=== PATIENT | male | born 1945 | race Caucasian/White ===

== ENCOUNTER → 2018-08-18 07:25 | Outpatient (CLI) | payer OTHER, SELFPAY ==
[2017-05-13 13:36] VITALS: BMI 24.8
--- NOTE | 2018-08-18 07:25 | COLBX_PTH ---
PATIENT: MELANIA ANDRES LOC: [facility] U#:[id number] AGE/SX: 79/M ROOM: RE08/18/[address]: Dr. Ezekiel Dawn MD : 1945 BED: DIS: SPEC #: [id number] RECD: 08/18/18 16:42 STATUS: FLORINA RUBÉN #: [id number] MICHAEL: 08/18/18 07:[address]: Ezekiel Dawn DEPT: SURGICAL PATHOLOGY RECD BY: Lexx Sanabria ENTERED: 08/21/18 08:33 SP TYPE: COLON BX OTHR DR: [facility] Tissues: COLON BIOPSY Procedures: Surgery Specimen Level IV HEADER OPERATION: Not noted PRE-OP DIAGNOSIS: Colon polyp Z12.11 TISSUE SUBMITTED: Colon polyp at 20 cm MICROSCOPIC DIAGNOSIS Colon polyp at 20 cm, biopsy: Hyperplastic polyp. SJ:amparo 08/22/18 MICROSCOPIC DESCRIPTION Slides are reviewed. GROSS DESCRIPTION Received in fixative is one container labeled with the patient's name and designated colon polyp at 20 cm. The specimen consists of one irregular fragment of light walter soft tissue that measures 0.3 x 0.3 x 0.1 cm. The specimen is totally submitted in one cassette. / SJ:amparo 08/21/18 TC:1 CPT: 81626
== END ==
PROVIDERS: Referring Provider Surgery; Visit Provider Surgery
DX: Z12.11 Encounter for screening for malignant neoplasm of colon (principal); K63.5 Polyp of colon
CPT/HCPCS: 88305

== ENCOUNTER 2022-12-30 11:44 | Emergency (ER) | payer OTHER, MEDICARE, SELFPAY ==
[2022-12-30 11:47] VITALS: BP 127/63; PULSE 118; RESP 22; TEMP 37.7; O2SAT 93; BMI 25.2
--- NOTE | 2022-12-30 11:59 | CT_ITS ---
STUDY: CT CERVICAL SPINE WITHOUT CONTRAST REASON FOR EXAM: Male, 77 years old. Facial injury due to a fall. Loss of consciousness. RADIATION DOSAGE (If Supplied By Facility): CTDIvol = ( 24.48 ) mGy, DLP = ( 570.04 ) mGycm TECHNIQUE: High resolution transaxial imaging was performed without contrast material. Sagittal and coronal images were reconstructed. Individualized dose optimization techniques were used for this CT. COMPARISON: None FINDINGS: Normal craniovertebral junction. There are degenerative changes of the anterior atlantoaxial articulation. Normal odontoid process. Normal cervical lordosis. Normal vertebral bodies and posterior osseous elements. C2-3: Facet joint osteoarthritis and hypertrophy worse on the left side. No significant foraminal stenosis is seen. C3-4: Facet joint osteoarthritis and hypertrophy. Uncovertebral arthrosis. Bilateral neural foraminal stenosis. C4-5: Marked degree of disc space narrowing. Uncovertebral arthrosis and spondylosis posteriorly worse on the right side. Marked degree of bilateral neural foraminal stenosis worse on the right side. Moderate central canal stenosis. C5-6: Marked degree of disc space narrowing. Spondylosis. Bilateral moderate to severe degree of neural foraminal stenosis worse on the left side. Central canal stenosis. C6-7: Facet joint osteoarthritis and hypertrophy. Mild degree of bilateral neural foraminal stenosis. C7-T1: Normal endplates. Normal disc height and morphology. Normal central canal and intervertebral neuroforamina. Normal visualized soft tissue structures. CT/Spine Cervical without Contras IMPRESSION: Multilevel degenerative changes, as described above. Neural foraminal and central canal stenosis at the C4-C5 and C5-C6 levels. Electronically Signed: Jaycob Juarez MD at 12:50 EDT ,
--- NOTE | 2022-12-30 11:59 | CT_ITS ---
STUDY: CT LUMBAR SPINE WITHOUT CONTRAST REASON FOR EXAM: Male, 77 years old. Pain, trauma RADIATION DOSAGE (If Supplied By Facility): CTDIvol = ( 39.41 ) mGy, DLP = ( 1529.59 ) mGycm TECHNIQUE: The patient was scanned in a multi detector CT scanner. High resolution transaxial imaging was performed. Images were obtained from L1 to S1 intervertebral level. Sagittal and coronal images were reconstructed. Individualized dose optimization techniques were used for this CT. COMPARISON: None FINDINGS: Normal lumbar lordosis. There is no substantial scoliosis. Increased markings at the lung bases suggestive of atelectasis. Normal vertebrae of the lumbar spine. L1-2: Mild degree of disc space narrowing. Anterior spondylosis. L2-3: Mild degree of disc space narrowing. Facet joint osteophytes right wrist and hypertrophy. Moderate degree of bilateral neural foraminal stenosis. L3-4: Facet joint osteoarthritis and hypertrophy. Bilateral neural foraminal stenosis. Mild degree of central canal stenosis. L4-5: Grade 1 anterolisthesis of L4 on L5 due to spondylolysis of the pars interarticularis of the L5 vertebrae. Facet joint osteoarthritis and hypertrophy. Bilateral neural foraminal and central canal stenosis. L5-S1: Moderate degree of disc space narrowing. Atherosclerotic calcification of the abdominal aorta. CT/Spine Lumbar without Contrast IMPRESSION: Multilevel degenerative changes, as described above. Electronically Signed: Jaycob Juarez MD at 12:52 EDT ,
--- NOTE | 2022-12-30 11:59 | CT_ITS ---
STUDY: CT BRAIN WITHOUT CONTRAST REASON FOR EXAM: Male, 77 years old. Facial injury due to a fall. Loss of consciousness. RADIATION DOSAGE (If Supplied By Facility): CTDIvol = ( 44.99 ) mGy, DLP = ( 880.47 ) mGycm TECHNIQUE: Transaxial CT imaging of the brain was performed without administration of intravenous contrast material. Individualized dose optimization techniques were used for this CT. COMPARISON: Comparison is made with prior study dated May 20, 2016. FINDINGS: Normal soft tissue structures. Normal calvarium. There is mild cerebral atrophy with widening of the extra-axial spaces and ventricular dilatation. There are areas of decreased attenuation within the white matter tracts of the supratentorial brain, consistent with microvascular disease changes. There are small punctate calcifications of the basal ganglia which are seen in the aging brain as a normal variant. Normal brainstem. Normal cerebellum. There is no intracranial hemorrhage. There are no findings of an acute ischemic infarction. Minimal degree of mucosal thickening of the left maxillary sinus. CT/Brain/Head without Contrast IMPRESSION: Chronic involutional changes of the brain. Electronically Signed: Jaycob Juarez MD at 12:47 EDT ,
--- NOTE | 2022-12-30 12:01 | EDS_ITS ---
HPI HPI - Fall History of Present Illness Chief Complaint: Fall Narrative Narrative: 77-year-old male past medical history of hypertension, takes baby aspirin, had a syncopal episode after he fell and hit his head. He states he was not feeling well last evening. He was shuffling his feet, and fell forward. He struck his left forehead, and must of passed out for few minutes afterwards. He does take a BB aspirin as a blood thinner. He states he awoke in pounded on the floor to get his 's attention. He was unable to get up off the floor so EMS was called. He complains of pain in his low back. He denies any neck pain or any headache. He is slightly nauseated but has not vomited. No other symptoms. No other injury except for low back pain. PFSH PFSH Home Medications Ibuprofen [Motrin] 800 mg PO BID 11/02/15 [History Last Taken 11/02/15] doxazosin 2 mg tablet (Cardura) 4 mg PO DAILY 11/02/15 [History Last Taken 11/01/15] lisinopril 10 mg tablet 40 mg PO BID 11/02/15 [History Last Taken 11/02/15] omeprazole 20 mg capsule,delayed release 20 mg PO DAILY 11/02/15 [History Last Taken 11/02/15] ropinirole 5 mg tablet (Requip) 1 mg PO TID 11/02/15 [History Last Taken 11/02/15] tramadol 50 mg tablet 50 mg PO BID 11/02/15 [History Last Taken 11/01/15] docusate sodium 100 mg capsule (DOK) 100 mg PO DAILY ##20 05/20/16 [Rx Last Taken Unknown] oxycodone-acetaminophen 5 mg-325 mg tablet 1 - 2 tab PO Q4H PRN PRN Pain #20 tabs 05/20/16 [Rx Last Taken Unknown] amitriptyline 10 mg tablet 10 mg PO QHS 05/13/17 [History Last Taken Unknown] aspirin 81 mg tablet,delayed release 81 mg PO DAILY@0800 05/13/17 [History Last Taken Unknown] atorvastatin 80 mg tablet 80 mg PO QHS 05/13/17 [History Last Taken Unknown] fluticasone propionate 50 mcg/actuation blister powder for inhalation (Flovent Diskus) 50 mcg IH 05/13/17 [History Last Taken Unknown] metoprolol tartrate 25 mg tablet 25 mg PO BID 05/13/17 [History Last Taken Unknown] pantoprazole 40 mg tablet,delayed release 40 mg PO BID 05/13/17 [History Last Taken Unknown] sildenafil 100 mg tablet (Viagra) 100 mg PO 05/13/17 [History Last Taken Unknown] ticagrelor 90 mg tablet (Brilinta) 90 mg PO BID 05/13/17 [History Last Taken Unknown] Allergy/AdvReac Type Severity Reaction Status Date / Time amoxicillin Allergy Hives Verified 11/02/15 16:42 Surgical History (Updated 12/30/22 @ 12:00 by Jada Martines) H/O heart artery stent Social History Smoking Status: Former smoker ROS ROS ED ROS Narrative Constitutional: No fever, no chills. Positive malaise HEENT: No sore throat. No neck pain. No loss of vision. No rhinorrhea. Cardiovascular: No chest pain. No palpitations. No pedal edema. Respiratory: No cough, no shortness of breath. Abdominal: No abdominal pain. Positive nausea. No vomiting. Genitourinary: No dysuria. No hematuria. Musculoskeletal: No myalgias. No arthralgias. Low back pain. Neurologic: No headaches. No dizziness. No lightheadedness. Skin: No rash. No change in color. Psychiatric: No depression. No anxiety. EXAM Physical Exam Narrative Exam Narrative: Afebrile. Vital signs noted. Nontoxic-appearing. GCS 15. ABCs intact. HEENT: Normocephalic. Atraumatic. PERRL, EOMI. Neck soft and supple. No point tenderness or step off. Cardiovascular: Positive tachycardia. No murmurs, rubs, or gallops appreciated. Respiratory: No tachypnea. Lungs clear to auscultation bilaterally. Gastrointestinal: Abdomen soft, nontender, with normoactive bowel sounds. No rebound or guarding. Neurological: Awake. Alert. Oriented to person, place, time, and current events. Nonfocal, nonlateralizing. Able to raise arms above head without difficulty. Skin: No rash. Normal color. No pallor. Musculoskeletal: No pedal edema. Full range of motion extremities. Pelvis stable. Able to flex and extend bilateral hips and knees. Const Vital Signs: 12/30/22 11:47 12/30/22 13:37 12/30/22 14:31 Temperature 99.9 F H Temperature Source Oral Pulse Rate 118 H 117 H Respiratory Rate 22 H 16 Respiratory Effort Normal Non-Labored Respiratory Depth Normal Respiratory Pattern Normal Blood Pressure 127/63 H 155/79 H Blood Pressure Mean 84 104 Pulse Ox 93 93 Oxygen Delivery Method Room Air Room Air MDM MDM MDM Narrative Medical decision making narrative: Patient reports syncopal episode after he struck his head. There were no prodromal symptoms. He states he was not feeling well, and he has slightly elevated temperature of 99.9 ?F here and is tachycardic. Regarding his fall, I do feel CT imaging is indicated of the brain, C-spine, and especially his low back as he is having pain. This is to help rule out any spinal fractures or intracranial hemorrhage as he does take baby aspirin. Regarding his tachycardia and elevated temperature, sepsis type work-up will be pursued including lactic acid, CBC, and CMP. He will be swabbed for COVID. I will check his urine to rule out infection and a chest x-ray obtained to rule out pneumonia, additionally I will obtain a pelvic x-ray because of his fall and trauma although there are no clinical signs of hip fracture. I reviewed the patient's laboratory work and he has slightly elevated white count of 13.0 which I think is nonspecific, hemoglobin normal at 13.5, platelet count normal at 163. In review of his electrolytes, he has a sodium of 137 and normal potassium 4.2, chloride slightly elevated at 111, glucose appropriately elevated at 127 with an anion gap normal at 5. Lactic acid is normal at 1.4, I do not feel that he is septic from any source, additionally I see no source of infection in review of his urinalysis and do not feel antibiotics are indicated. Chest x-ray interpreted by myself shows no evidence of pneumonia. Given his low back pain and inability to ambulate initially, I obtained x-rays of the pelvis which shows no evidence of acute fracture on my independent interpretation. I reviewed the radiology report which confirms this. Multiple CT imagings were obtained initially including CT of the brain to look for acute hemorrhage and there is no evidence of skull fracture or intracranial hemorrhage, CT of the C-spine report was reviewed and there are degenerative changes but no evidence of fracture. I also reviewed the CT report for the CT lumbar spine which also shows degenerative changes, but no acute fracture. Patient was given Tylenol for headache. He was removed from his c-collar clinically. His respiratory swabs are negative for COVID and influenza. I am unsure as to the source of his low-grade fever of 99.9 degrees. Additionally, he was tachycardic, and satting 93% on room air. He may have undiagnosed COPD as he was a smoker according to his family. Concern was for pulmonary embolism given his tachycardia, borderline hypoxia, and low-grade fever. CTA was obtained and images reviewed. I reviewed the radiology report which shows emphysematous changes but no evidence of an acute pulmonary embolism. He was able to sit up from the cot, and I feel he can be discharged safely home with follow-up to his primary care provider. He will continue [id number]-[id number] medications. He feels well and would like to be discharged. I feel he can be d ischarged safely home with follow-up. Return instructions were reviewed. Disposition is discharged home in stable condition. History & Record Review Discussion w/independent historian: Patient and Family Additional record(s) reviewed:: Prior ED visit and Prior labs Lab Data Attestation: I reviewed the patient's lab results. Labs: Laboratory Results - last 24 hr 12/30/22 12/30/22 12/30/22 12:00 12:00 12:00 WBC 13.0 H RBC 4.52 L Hgb 13.5 Hct 40.1 MCV 88.7 MCH 29.9 MCHC 33.7 RDW Std Deviation 43.3 RDW Coeff of Radha 13.3 Plt Count 163 MPV 9.4 Immature Gran % (Auto) 0.600 Neut % (Auto) 91.3 H Lymph % (Auto) 3.5 L [place] % (Auto) 4.0 Eos % (Auto) 0.3 Baso % (Auto) 0.3 Absolute Neuts (auto) 11.9 H Absolute Lymphs (auto) 0.46 L Nucleated RBC % 0 Differential Comment COMMENT Sodium 137 Potassium 4.2 Chloride 111 H Carbon Dioxide 21.0 Anion Gap 5 BUN 20 H Creatinine 1.09 Estim Creat Clear Calc 68.91 Est GFR (MDRD) Af Amer 85 Est GFR (MDRD) Non-Af 70 BUN/Creatinine Ratio 18.3 Glucose 127 H Lactic Acid 1.4 Calcium 8.8 Total Bilirubin 1.20 H AST 19 ALT 18 Alkaline Phosphatase 47 Troponin I High Sens Total Protein 6.8 Albumin 3.6 Globulin 3.2 Albumin/Globulin Ratio 1.1 Urine Color Urine Clarity Urine pH Ur Specific Ravia Urine Protein Urine Glucose (UA) Urine Ketones Urine Occult Blood Urine Nitrite Urine Bilirubin Urine Urobilinogen Ur Leukocyte Esterase Urine RBC Urine WBC Ur Squamous Epith Cells Urine Bacteria Urine Mucus 12/30/22 12/30/22 12:00 12:51 WBC RBC Hgb Hct MCV MCH MCHC RDW Std Deviation RDW Coeff of Radha Plt Count MPV Immature Gran % (Auto) Neut % (Auto) Lymph % (Auto) [place] % (Auto) Eos % (Auto) Baso % (Auto) Absolute Neuts (auto) Absolute Lymphs (auto) Nucleated RBC % Differential Comment Sodium Potassium Chloride Carbon Dioxide Anion Gap BUN Creatinine Estim Creat Clear Calc Est GFR (MDRD) Af Amer Est GFR (MDRD) Non-Af BUN/Creatinine Ratio Glucose Lactic Acid Calcium Total Bilirubin AST ALT Alkaline Phosphatase Troponin I High Sens 21 Total Protein Albumin Globulin Albumin/Globulin Ratio Urine Color Yellow Urine Clarity Clear Urine pH 8.0 Ur Specific Ravia 1.010 Urine Protein Negative Urine Glucose (UA) Normal Urine Ketones Negative Urine Occult Blood 25 H Urine Nitrite Negative Urine Bilirubin Negative Urine Urobilinogen Normal Ur Leukocyte Esterase Negative Urine RBC 0-5 SEEN Urine WBC 0 SEEN Ur Squamous Epith Cells 0 SEEN Urine Bacteria 0 SEEN Urine Mucus 0 SEEN Radiography Diagnostic Testing: Clinical Impression(s) from Imaging Studies Brain CT 12/30/22 11:59 IMPRESSION: Chronic involutional changes of the brain. Electronically Signed: Jaycob Juarez MD at 12:47 EDT , Cervical Spine CT 12/30/22 11:59 IMPRESSION: Multilevel degenerative changes, as described above. Neural foraminal and central canal stenosis at the C4-C5 and C5-C6 levels. Electronically Signed: Jaycob Juarez MD at 12:50 EDT , Lumbar Spine CT 12/30/22 11:59 IMPRESSION: Multilevel degenerative changes, as described above. Electronically Signed: Jaycob Juarez MD at 12:52 EDT , Chest X-Ray 12/30/22 12:20 IMPRESSION: Hyperinflation. Stable mild scarring at the lung bases. Multiple healed right rib fractures. Electronically Signed: Jaycob Juarez MD at 12:55 EDT , Pelvis X-Ray 12/30/22 12:20 IMPRESSION: Normal x-ray examination of the pelvis. Electronically Signed: Jaycob Juarez MD at 12:55 EDT , Chest CTA 12/30/22 13:47 IMPRESSION: Hyperinflation. Mild degree of scarring and emphysematous changes at the right lung base. Electronically Signed: Jaycob Juarez MD at 14:37 EDT , Discharge Plan Triage Chief Complaint: Fall ED Provider: Misha Bush Dx/Rx/DC Orders Clinical Impression: Fall, Closed head injury, Lumbar strain, Tachycardia Instructions: ED Back Sprain/Strain, ED Fall with Uncertain Cause, ED Head Injury (Adult) Prescriptions: No Action tramadol 50 MG tablet 50 mg PO BID Label Comments: ARTHRITIS lisinopril 10 MG tablet 40 mg PO BID Label Comments: BLOOD PRESSURE omeprazole 20 MG capsule 20 mg PO DAILY Label Comments: GERD ropinirole [Requip] 5 MG tablet 1 mg PO TID Label Comments: RESTLESS LEGS Ibuprofen [Motrin] 800 MG tablet 800 mg PO BID Label Comments: PAIN doxazosin [Cardura] 2 MG tablet 4 mg PO DAILY Label Comments: HEART,BLOOD PRESSURE oxycodone-acetaminophen 1 TABLET tablet 1 - 2 tab PO Q4H PRN PRN (Reason: Pain) Qty: 20 0RF docusate sodium [DOK] 100 MG capsule 100 mg PO DAILY Qty: 20 0RF Flovent Diskus 50 MCG blister with device 50 mcg IH atorvastatin 80 MG tablet 80 mg PO QHS aspirin 81 MG tablet 81 mg PO DAILY@0800 sildenafil [Viagra] 100 MG tablet 100 mg PO amitriptyline 10 MG tablet 10 mg PO QHS pantoprazole 40 MG tablet 40 mg PO BID metoprolol tartrate 25 MG tablet 25 mg PO BID ticagrelor [Brilinta] 90 MG tablet 90 mg PO BID [facility] [Primary [facility] Provider] - Disposition Disposition: Home, Self Care
[2022-12-30] MEDS: Ondansetron 4 MG/2 ML Vial IV (12:10)
[2022-12-30] MEDS: 0.9% Normal Saline 1,000 ML 1000 ML IV (12:10)
[2022-12-30 12:14] LABS: Absolute Lymphocyte Count 0.46 X10^3/uL (0.83-4.51); Absolute Neutrophil Count 11.9 X10^3/uL (2.0-7.7); Basophil# 0.04 X10^3/uL; Basophil% 0.3 % (0-1); Eosinophil# 0.04 X10^3/uL; Eosinophils% 0.3 % (0-5); Hematocrit 40.1 % (40-54); Hemoglobin 13.5 g/dL (13.0-16.5); Lymphocyte # 0.46 X10^3/ul (0.83-4.51); Lymphocyte % 3.5 % (19-41); Mean Corp Hgb Conc 33.7 g/dL (32-36); Mean Corpuscular Hgb 29.9 pg (27.0-32.0); Mean Corpuscular Volume 88.7 fL (80-94); Mean Platelet Vol. 9.4 fl (6.2-12.0); Monocyte# 0.52 X10^3/uL; NRBC Flagged by Analyzer 0 % (0-5); Neutrophil # 11.86 X10^3/uL (2.7-7.7); Neutrophil % 91.3 % (47-70); POSITIVE DIFFERENTIAL YES; Platelet Count 163 K/mm3 (150-450); RBC Distribution Width CV 13.3 % (11.6-14.6); RBC Distribution Width SD 43.3 fl (35.1-43.9); Red Blood Count 4.52 M/mm3 (4.6-6.2)
[2022-12-30 12:15] LABS: Differential Indicated SCAN CRITERIA MET
--- NOTE | 2022-12-30 12:20 | RAD_ITS ---
STUDY: X-RAY - PELVIS REASON FOR EXAM: Male, 77 years old. Pain following a fall. TECHNIQUE: One view of the pelvis was obtained. COMPARISON: None. FINDINGS: Moderate amount of fecal material is seen in the colon. Normal visualized soft tissue structures. Normal bilateral iliac wings, sacroiliac joints and visualized sacrum. Normal visualized bilateral superior and inferior pubic rami. Normal pubic symphysis. Normal ischial tuberosities. Normal visualized right femoral head. Normal right acetabulum. Normal right hip joint. Normal visualized left femoral head. Normal left acetabulum. Normal left hip joint. RAD/Pelvis 1 or 2 Views IMPRESSION: Normal x-ray examination of the pelvis. Electronically Signed: Jaycob Juarez MD at 12:55 EDT ,
--- NOTE | 2022-12-30 12:20 | RAD_ITS ---
STUDY: X-RAY CHEST REASON FOR EXAM: Male, 77 years old. Fever TECHNIQUE: Single AP portable view of the chest. COMPARISON: Comparison is made with prior examination dated April 28, 2015. FINDINGS: EKG electrodes are seen. Hyperinflation. Stable mild scarring at the lung bases. There is no demonstrated pleural abnormality. Normal size heart. Normal mediastinum and melissa. Normal visualized pulmonary arteries. There is atherosclerotic calcification of the aortic arch with tortuosity. There are degenerative changes of the visualized thoracic spine. There are multiple healed right-sided rib fractures. There is no demonstrated abnormality of the visualized soft tissue structures of the upper abdomen. RAD/Chest 1 View (Portable) IMPRESSION: Hyperinflation. Stable mild scarring at the lung bases. Multiple healed right rib fractures. Electronically Signed: Jaycob Juarez MD at 12:55 EDT ,
[2022-12-30 12:28] LABS: ALB/GLOB Ratio 1.1 RATIO (0.9-2.4); AST(SGOT) 19 U/L (15-37); Alanine Aminotransfer ALT/SGPT 18 U/L (16-61); Albumin, Serum 3.6 g/dL (3.2-5.0); Alkaline Phosphatase 47 U/L (45-117); Anion Gap 5 (5-15); BUN 20 mg/dL (7-18); BUN/Creat Ratio 18.3 RATIO (10-20); Calcium,Total 8.8 mg/dL (8.5-10.1); Chloride 111 mmol/L (98-107); Creatinine, Serum 1.09 mg/dL (0.70-1.30); EST Glomerular Filtration Rate 70 mL/min (>60); Est Glom Filt Rate - Afr Amer 85 mL/min (>60); Estimated Creatinine Clearance 68.91 ml/min; Globulin 3.2 g/dL (2.2-4.2); Glucose 127 mg/dL (74-106); Potassium 4.2 mmol/L (3.5-5.1); Protein, Total 6.8 g/dL (6.4-8.2); Sodium Level 137 mmol/L (136-145)
[2022-12-30 12:42] LABS: Lactic Acid 1.4 mmol/L (0.4-1.9)
[2022-12-30 12:57] LABS: Bacteria 0 SEEN /hpf (None Seen); Mucous, Urine 0 SEEN /hpf (<or=2+); Squamous Epithelial Cells - UA 0 SEEN /hpf (0-5); White Blood Cells 0 SEEN /hpf (0-5)
[2022-12-30 12:58] LABS: Color, Urine Yellow (Yellow); Glucose, Dipstick Normal (Normal); Ketone-Dipstick Negative (Negative); Leukocyte Esterase-Dipstick Negative /ul (Negative); Nitrite-Dipstick Negative (Negative); Occult Blood-Urine 25 /ul (Negative); Protein-Dipstick Negative (Negative); Urine Bilirubin Dipstick Negative (Negative); Urine Clarity Clear (Clear); Urine Urobilinogen Normal (Normal)
[2022-12-30 13:05] LABS: Red Blood Cells-Urine 0-5 SEEN /hpf (0-5)
[2022-12-30 13:37] VITALS: BP 155/79; PULSE 117; RESP 16; O2SAT 93
[2022-12-30] MEDS: Acetaminophen 500 MG Tablet 1000 MG PO (13:46)
--- NOTE | 2022-12-30 13:47 | CT_ITS ---
STUDY: CTA CHEST REASON FOR EXAM: Male, 77 years old. Shortness of breath RADIATION DOSAGE (If Supplied By Facility): CTDIvol = ( 13.66 ) mGy, DLP = ( 444.00 ) mGycm TECHNIQUE: The examination was performed with the intravenous administration of IV 100mL [id number]-[id number]. Post-processing of the angiographic images was performed, with multiplanar reformation and 3D reconstruction. Individualized dose optimization techniques were used for this CT. COMPARISON: Comparison is made with prior chest radiograph done earlier in the day. FINDINGS: Normal enhancement of the main pulmonary artery and right and left pulmonary arteries. Normal enhancement of the bilateral peripheral pulmonary arteries. There is no demonstrated pulmonary embolism. There is atherosclerotic calcification of the aortic arch with tortuosity. There is no demonstrated aortic dissection. There are calcifications of the coronary arteries. There are visualized mediastinal lymph nodes, which are within normal size limits, and with normal morphology. Normal hilar regions. Normal visualized trachea and bronchi. Hyperinflation. Mild degree of increased markings at the right lung base with small bullous formation suggestive of scarring. No focal infiltrate is seen. Normal pleura. Normal chest wall structures. There are degenerative changes of thoracic spine. Fatty infiltration of the liver. CT/CTA Chest W/WO Contrast IMPRESSION: Hyperinflation. Mild degree of scarring and emphysematous changes at the right lung base. Electronically Signed: Jaycob Juarez MD at 14:37 EDT ,
[2022-12-30 14:11] LABS: Troponin-I HS 21 pg/mL (3.0-78.0)
[2022-12-30 15:23] VITALS: BP 112/72; PULSE 120; O2SAT 93
== END 2022-12-30 15:30 | disposition home or self-care (01) ==
PROVIDERS: Emergency Provider Emergency Medicine; Referring Provider Emergency Medicine; Visit Provider Emergency Medicine
DX: S06.9X9A Unspecified intracranial injury with loss of consciousness of unspecified duration, initial encounter (principal); Z79.899 Other long term (current) drug therapy; I10 Essential (primary) hypertension; R00.0 Tachycardia, unspecified; S39.012A Strain of muscle, fascia and tendon of lower back, initial encounter; Z87.891 Personal history of nicotine dependence; Z79.82 Long term (current) use of aspirin; W01.198A Fall on same level from slipping, tripping and stumbling with subsequent striking against other object, initial encounter
CPT/HCPCS: 70450; 71045; 71275; 72125; 72131; 72170; 80053; 81001; 83605; 84484; 85025; 87428; 96361; 96374; 99285; J7030; Q9967; A4216; J2405

== ENCOUNTER 2023-04-01 12:31 | Emergency (ER) | payer OTHER, SELFPAY ==
[2023-04-01 12:32] VITALS: BP 135/50; PULSE 92; RESP 16; TEMP 35.7; O2SAT 96; BMI 22.3
--- NOTE | 2023-04-01 13:00 | CT_ITS ---
STUDY: CT CHEST WITHOUT CONTRAST REASON FOR EXAM: Male, 77 years old. Fall RADIATION DOSAGE (If Supplied By Facility): CTDIvol = ( 15.15 ) mGy, DLP = ( 533.70 ) mGycm TECHNIQUE: Transaxial imaging was performed without the administration of intravenous contrast material. Multiplanar coronal and sagittal images were reformatted. Individualized dose optimization techniques were used for this CT. COMPARISON: No relevant priors. FINDINGS: CHEST There is emphysema. There are mild interstitial septal increased opacities. There are granulomatous calcifications. There is no demonstrated pleural abnormality. There are calcifications and endovascular stents of the coronary arteries. There are paratracheal lymph nodes measuring up to 1.0 cm. Normal hilar regions. Normal unenhanced pulmonary arteries. There is atherosclerotic calcification of the aortic arch with tortuosity and elongation of the aortic arch and descending thoracic aorta. There are multi-level degenerative changes of the thoracic spine. There is no demonstrated abnormality of the visualized upper abdomen. CT/Chest without Contrast IMPRESSION: No fracture or pneumothorax. Mild interstitial fibrosis. Electronically Signed: Stefan Bills MD at 14:10 EDT ,
--- NOTE | 2023-04-01 13:00 | CT_ITS ---
STUDY: CT BRAIN WITHOUT CONTRAST REASON FOR EXAM: Male, 77 years old. Fall RADIATION DOSAGE (If Supplied By Facility): CTDIvol = ( 44.99 ) mGy, DLP = ( 863.60 ) mGycm TECHNIQUE: Transaxial CT imaging of the brain was performed without administration of intravenous contrast material. Individualized dose optimization techniques were used for this CT. COMPARISON: December 30, 2022 FINDINGS: Normal soft tissue structures. Normal calvarium. There is right orbital lens replacement. There is temporomandibular arthrosis. There is mild cerebral atrophy with widening of the extra-axial spaces and ventricular dilatation. There are areas of decreased attenuation within the white matter tracts of the supratentorial brain, consistent with microvascular disease changes. Normal basal ganglia and thalami. Normal brainstem. There is mild cerebellar atrophy. There is no intracranial hemorrhage. There are no findings of an acute ischemic infarction. There is mild mucosal thickening of the visualized paranasal sinuses. CT/Brain/Head without Contrast IMPRESSION: Chronic involutional changes of the brain. Electronically Signed: Stefan Bills MD at 13:50 EDT ,
--- NOTE | 2023-04-01 13:00 | CT_ITS ---
STUDY: CT CERVICAL SPINE WITHOUT CONTRAST REASON FOR EXAM: Male, 77 years old. Fall RADIATION DOSAGE (If Supplied By Facility): CTDIvol = ( 19.76 ) mGy, DLP = ( 430.60 ) mGycm TECHNIQUE: High resolution transaxial imaging was performed without contrast material. Sagittal and coronal images were reconstructed. Individualized dose optimization techniques were used for this CT. COMPARISON: None FINDINGS: Normal craniovertebral junction. There are degenerative changes of the anterior atlantoaxial articulation. Normal odontoid process. Normal cervical lordosis. Normal vertebral bodies and posterior osseous elements. There is no acute fracture. C2-3: There is mild spurring to the right. Normal central canal and intervertebral neuroforamina. C3-4: Mild spurring. Facet spurring. No canal stenosis. Mild foraminal narrowing. C4-5: Disc space narrowing. Spurring asymmetric to the right. Moderately severe canal stenosis. Right greater than left foraminal narrowing. C5-6: Disc space narrowing. Spurring. Facet spurring. Moderately severe canal stenosis. Bilateral foraminal narrowing. C6-7: Disc space narrowing. Spurring. Mild canal stenosis. Left foraminal narrowing. C7-T1: Normal endplates. Normal disc height and morphology. Facet spurring. Normal central canal and intervertebral neuroforamina. Normal visualized soft tissue structures. CT/Spine Cervical without Contras IMPRESSION: Multilevel degenerative changes, as described above. Electronically Signed: Stefan Bills MD at 13:58 EDT ,
--- NOTE | 2023-04-01 13:00 | CT_ITS ---
STUDY: CT LUMBAR SPINE WITHOUT CONTRAST REASON FOR EXAM: Male, 77 years old. Fall RADIATION DOSAGE (If Supplied By Facility): CTDIvol = ( 32.15 ) mGy, DLP = ( 1111.19 ) mGycm TECHNIQUE: The patient was scanned in a multi detector CT scanner. High resolution transaxial imaging was performed. Images were obtained from T12 to sacrum. Sagittal and coronal images were reconstructed. Individualized dose optimization techniques were used for this CT. COMPARISON: December 30, 2022 FINDINGS: Normal lumbar lordosis. There is grade 1 anterolisthesis at L4-5. There is a mild levoscoliosis of the lumbar spine. Normal vertebrae of the lumbar spine. There is no demonstrated compression deformity or fracture of the visualized lumbar vertebrae. L1-2: Mild spurring. No canal stenosis. Mild foraminal narrowing. L2-3: Mild spurring. Facet spurring. Mild canal stenosis. Right greater than left foraminal narrowing. L3-4: Disc bulge and spurring to the right. Facet spurring. Moderate canal stenosis. Right greater than left foraminal narrowing. L4-5: Disc bulge and mild spurring. Facet spurring. Severe canal stenosis. Bilateral foraminal narrowing L5-S1: Disc space narrowing. Spurring. Facet spurring. No canal stenosis. Bilateral foraminal narrowing. Normal visualized paraspinous soft tissue structures. CT/Spine Lumbar without Contrast IMPRESSION: Multilevel degenerative changes, as described above. Electronically Signed: Stefan Bills MD at 14:27 EDT ,
--- NOTE | 2023-04-01 13:24 | ED.RN ---
Dr. Gianni underwood'sangita pt. to take his home margarita
--- NOTE | 2023-04-01 15:07 | EDS_ITS ---
<Statement entered by Roselia Archer MD - 04/01/23 22:44> Patient seen and evaluated with FERNANDO. I personally interviewed and examined the patient. I was involved in all aspects of patient's orders, interpretation of results, and treatment. Patient presents after fall from truck bed. Patient fell out of the back of a truck bed a few days ago landing on his back. He denies loss of consciousness. He is not on anticoagulants. Patient sitting upright in bed no acute distress. Head and neck examination unremarkable. Heart is regular rate and rhythm. Lung sounds are clear. Abdomen is soft and nontender. Back examination reveals diffuse midline and paraspinal tenderness. CT scan of the head, C-spine, chest, lumbar spine obtained. No evidence of acute fractures noted. Patient declined anything here for pain and will continue [id number] medication at home. Return instructions given. HPI History of Present Illness Chief Complaint: Head Injury Narrative Narrative: Patient is a 77-year-old male with history of CAD, chronic right knee pain, hyperlipidemia, hypertension presents the emergency department after mechanical fall 2 days ago. Patient states he was on a truck, when he fell backwards on the bed of the truck falling 4 feet on his back and hitting his head. He denies any LOC however he does state he was dazed. He is not currently on any blood thinners. He states that his back, head, neck and lower back has been hurting, he is here for evaluation. PFSH PFSH Home Medications Ibuprofen [Motrin] 800 mg PO BID 11/02/15 [History Last Taken 11/02/15] doxazosin 2 mg tablet (Cardura) 4 mg PO DAILY 11/02/15 [History Last Taken 11/01/15] lisinopril 10 mg tablet 40 mg PO BID 11/02/15 [History Last Taken 11/02/15] omeprazole 20 mg capsule,delayed release 20 mg PO DAILY 11/02/15 [History Last Taken 11/02/15] ropinirole 5 mg tablet (Requip) 1 mg PO TID 11/02/15 [History Last Taken 11/02/15] tramadol 50 mg tablet 50 mg PO BID 11/02/15 [History Last Taken 11/01/15] docusate sodium 100 mg capsule (DOK) 100 mg PO DAILY ##20 05/20/16 [Rx Last Taken Unknown] oxycodone-acetaminophen 5 mg-325 mg tablet 1 - 2 tab PO Q4H PRN PRN Pain #20 tabs 05/20/16 [Rx Last Taken Unknown] amitriptyline 10 mg tablet 10 mg PO QHS 05/13/17 [History Last Taken Unknown] aspirin 81 mg tablet,delayed release 81 mg PO DAILY@0800 05/13/17 [History Last Taken Unknown] atorvastatin 80 mg tablet 80 mg PO QHS 05/13/17 [History Last Taken Unknown] fluticasone propionate 50 mcg/actuation blister powder for inhalation (Flovent Diskus) 50 mcg IH 05/13/17 [History Last Taken Unknown] metoprolol tartrate 25 mg tablet 25 mg PO BID 05/13/17 [History Last Taken Unkn own] pantoprazole 40 mg tablet,delayed release 40 mg PO BID 05/13/17 [History Last Taken Unknown] sildenafil 100 mg tablet (Viagra) 100 mg PO 05/13/17 [History Last Taken Unknown] ticagrelor 90 mg tablet (Brilinta) 90 mg PO BID 05/13/17 [History Last Taken Unknown] Allergy/AdvReac Type Severity Reaction Status Date / Time amoxicillin Allergy Hives Verified 11/02/15 16:42 Surgical History H/O heart artery stent Social History Smoking Status: Former smoker ROS ROS ED ROS Narrative Constitutional: Negative for fever, chills, weight loss, weakness Eyes: Negative for vision loss, vision change, double vision ENT: Negative for any sore throat, ear pain, congestion Cardiovascular: Negative for any chest pain, tightness, palpitations Respiratory: Negative for any cough, sputum production, hemoptysis, dyspnea, dyspnea on exertion, orthopnea Gastrointestinal: Negative for any abdominal pain, nausea, vomiting, diarrhea, constipation, blood in stool, blood in vomit : Negative for any urinary frequency, dysuria, retention, blood in urine Muscle skeletal: Negative for any muscle joint pain, stiffness, myalgias, art hralgias. Positive for back and neck pain Neurological: Negative for any syncope, numbness or tingling, dizziness. Positive for headache Skin: Negative for any rashes, lumps, itching, abrasions, lacerations Psychiatric: Negative for any depression, anxiety, stress, suicidal ideation, homicidal ideation Hematologic: Negative for any easy bruising, excessive bruising, easy bleeding Allergies: Negative for any eczema, hives, rash EXAM Physical Exam Narrative Exam Narrative: Vital signs reviewed. HEET: Head normocephalic atraumatic, TMs clear bilaterally. Posterior pharynx is clear, moist mucous membranes. Nares clear bilaterally. Pupils are equal round reactive to light. Negative for any hemotympanum, septal hematoma. Neck: Supple with no lymphadenopathy or tenderness. No signs of meningismus, negative jolt sign. Patient pain on palpation to the lumbar spine all the way down to the back pain. Cardiac: Regular rate and rhythm no murmurs gallops or rubs, equal peripheral pulses bilaterally. Respiratory: Lungs clear to auscultation bilaterally. No chest tenderness. Abdomen: Soft, nontender, nondistended. No abdominal bruit or pulsatile masses. No hepatosplenomegaly Extremities: No peripheral edema, no signs of gross trauma or deformity. Active full range of motion of all extremities. Neuro: Cranial nerves II through XII intact, no focal neurological deficits. Skin: Clean dry and intact with no rash, purpura, petechiae, vesicles or pustules. Backs/flank: No CVA tenderness, no midline spinal tenderness, no deformity. No step-off deformity. No ecchymosis, edema Psych: Normal mood and affect. No SI, HI or acute psychosis. Const Vital Signs: 04/01/23 12:32 04/01/23 13:24 Temperature 96.2 F L Temperature Source Temporal Pulse Rate 92 Respiratory Rate 16 Respiratory Effort Normal Blood Pressure 135/50 H Blood Pressure Mean 78 Pulse Ox 96 Oxygen Delivery Method Room Air Positive well nourished and well developed General Appearance ED: well developed MDM MDM Radiography Diagnostic Testing: Clinical Impression(s) from Imaging Studies Brain CT 04/01/23 13:00 IMPRESSION: Chronic involutional changes of the brain. Electronically Signed: Stefan Bills MD at 13:50 EDT , Cervical Spine CT 04/01/23 13:00 IMPRESSION: Multilevel degenerative changes, as described above. Electronically Signed: Stefan Bills MD at 13:58 EDT , Chest CT 04/01/23 13:00 IMPRESSION: No fracture or pneumothorax. Mild interstitial fibrosis. Electronically Signed: Stefan Bills MD at 14:10 EDT , Lumbar Spine CT 04/01/23 13:00 IMPRESSION: Multilevel degenerative changes, as described above. Electronically Signed: Stefan Bills MD at 14:27 EDT , Treatment and Re-Evaluation :: All radiologic examinations were read, reviewed by the emergency department attending. From these reads, a plan of care will be put in place. Patient appears generally well, patient appears nontoxic, vital signs are stable. Patient presents to the emergency department for mechanical fall outside of the truck bed. Patient received CT scans of the brain and cervical spine he did receive a CT scan of the chest which also showed the thoracic spine as well as the lumbar spine. All these CTs were concerning for any sort of intracranial bleeding, spinal fracture. All of these were negative. Patient is likely suffering from soft tissue injuries. He will ice, elevate, perform gentle stretching. Take Tylenol as well as his tramadol at home. All questions were answered, is given strict return precautions Discharge Plan Triage Chief Complaint: Head Injury ED Midlevel Provider: Refugio Booth ED Provider: Roselia Archer Dx/Rx/DC Orders Clinical Impression: Lumbar contusion, CHI (closed head injury), Cervical muscle strain, Fall Prescriptions: No Action tramadol 50 MG tablet 50 mg PO BID Patient Comments: ARTHRITIS lisinopril 10 MG tablet 40 mg PO BID Patient Comments: BLOOD PRESSURE omeprazole 20 MG capsule 20 mg PO DAILY Patient Comments: GERD ropinirole [Requip] 5 MG tablet 1 mg PO TID Patient Comments: RESTLESS LEGS Ibuprofen [Motrin] 800 MG tablet 800 mg PO BID Patient Comments: PAIN doxazosin [Cardura] 2 MG tablet 4 mg PO DAILY Patient Comments: HEART,BLOOD PRESSURE oxycodone-acetaminophen 1 TABLET tablet 1 - 2 tab PO Q4H PRN PRN (Reason: Pain) Qty: 20 0RF docusate sodium [DOK] 100 MG capsule 100 mg PO DAILY Qty: 20 0RF Flovent Diskus 50 MCG blister with device 50 mcg IH atorvastatin 80 MG tablet 80 mg PO QHS aspirin 81 MG tablet 81 mg PO DAILY@0800 sildenafil [Viagra] 100 MG tablet 100 mg PO amitriptyline 10 MG tablet 10 mg PO QHS pantoprazole 40 MG tablet 40 mg PO BID metoprolol tartrate 25 MG tablet 25 mg PO BID ticagrelor [Brilinta] 90 MG tablet 90 mg PO BID [facility] [[facility] - Disposition Disposition: Home, Self Care
[2023-04-01 15:22] VITALS: BP 133/42; PULSE 90; RESP 14; O2SAT 99
[2023-04-01 15:47] VITALS: RESP 16
== END 2023-04-01 15:48 | disposition home or self-care (01) ==
PROVIDERS: Emergency Provider Emergency Medicine; Visit Provider Emergency Medicine
DX: S09.8XXA Other specified injuries of head, initial encounter (principal); E78.5 Hyperlipidemia, unspecified; S16.1XXA Strain of muscle, fascia and tendon at neck level, initial encounter; Z87.891 Personal history of nicotine dependence; S30.0XXA Contusion of lower back and pelvis, initial encounter; I25.10 Atherosclerotic heart disease of native coronary artery without angina pectoris; I10 Essential (primary) hypertension; Z79.899 Other long term (current) drug therapy; Z79.82 Long term (current) use of aspirin; W17.89XA Other fall from one level to another, initial encounter; Y92.812 Truck as the place of occurrence of the external cause
CPT/HCPCS: 70450; 71250; 72125; 72131; 99282

== ENCOUNTER → 2024-02-10 | Outpatient (CLI) | payer OTHER, SELFPAY ==
--- NOTE | 2024-02-10 14:14 | US_ITS ---
EXAM: US SOFT TISSUES HEAD AND NECK, THYROID CLINICAL INDICATION: THYROID NODULES TECHNIQUE: De La Garza scale and color doppler imaging was performed of the thyroid gland. COMPARISON: CT cervical spine and CT chest 04/01/2023 FINDINGS: LEFT THYROID LOBE: Left thyroid lobe measures 3.2 x 1.3 x 1.8 cm. Homogeneous echotexture with normal vascularity. No thyroid nodules are present. RIGHT THYROID LOBE: Right thyroid lobe measures 4.3 x 1.0 x 2.1 cm. Homogeneous echotexture with normal vascularity. No thyroid nodules are present. ISTHMUS: Isthmus measures 2 mm in AP dimension. No thyroid nodules are present. US/Thyroid IMPRESSION: Normal thyroid ultrasound. Electronically Signed: Dion Anderson MD at 14:32 EDT ,
== END | disposition home or self-care (01) ==
LOC: US 14:10
PROVIDERS: Referring Provider Internal Medicine; Visit Provider Internal Medicine
DX: E04.1 Nontoxic single thyroid nodule (principal)
CPT/HCPCS: 76536

== ENCOUNTER → 2024-02-23 | Outpatient (CLI) | payer OTHER, SELFPAY ==
--- NOTE | 2024-02-23 13:05 | CT_ITS ---
HISTORY: LUNG NODULES. TECHNIQUE: Helically acquired images were obtained of the chest without contrast. A radiation dose optimization technique was used for this scan. 556 images. COMPARISON: 04/01/2023, 12/30/2022. FINDINGS: LARGE AIRWAYS: Patent. LUNGS: Mild emphysema with chronic reticular and linear scarring. Decreased lower lobe atelectasis. No new suspicious nodule or acute alveolar consolidation. Chronic calcifications in the right lower lobe. PLEURA: No pneumothorax or significant pleural effusion. HEART/PERICARDIUM: Heart within normal limits in size with coronary artery calcification. Chronic mild pericardial effusion. VESSELS: Thoracic aorta nondilated. MEDIASTINUM/BRIDGER: No pathologically enlarged adenopathy. UPPER ABDOMEN: Unremarkable. BONES: Old right 4th, 5th, and 6th rib fractures. CT/Chest without Contrast IMPRESSION: Mild emphysema with chronic scarring. Presence of pulmonary emphysema on CT is an independent risk factor for lung cancer. Consider LDCT lung cancer screening in the future. Chronic mild pericardial effusion. Electronically Signed: Mary Del Valle MD at 11:49 EDT ,
== END | disposition home or self-care (01) ==
PROVIDERS: Referring Provider Internal Medicine; Visit Provider Internal Medicine
DX: R91.1 Solitary pulmonary nodule (principal)
CPT/HCPCS: 71250

== ENCOUNTER 2025-01-12 12:47 | Emergency (ER) | payer OTHER, SELFPAY ==
[2025-01-12 12:48] VITALS: BP 153/68; PULSE 95; RESP 18; TEMP 37.2; O2SAT 100; BMI 23.1
--- NOTE | 2025-01-12 13:01 | EX.ED.UPPERE ---
HPI History of Present Illness HPI Narrative: Patient presents with a left hand and wrist pain that has been getting worse over the last 4 days. Patient states that his pain is worse when he wakes up in the morning. Patient states his fist is tight and clenched when he wakes up in the morning. Patient states this gets better as the day progresses. Patient denies any trauma or injury. Patient denies any paresthesias or weakness. Patient denies any coldness or cyanosis to his hand or fingers. Chief Complaint: Upper Extremity Injury Informant: patient Onset/Context/Timing Onset: Days (4) Context: Gradual Onset Timing: Intermittent Quality of Pain: Dull Location: Left hand and wrist Worsened by: Sleeping Relieved by: Nothing Associated Symptoms Associated Symptoms: Negative for Parasthesia, Weakness or Loss of Funtion [facility] Medical History (Updated 01/12/25 @ 14:[address] Donald Milian, DO) Hypertension Coronary artery disease Home Medications ?Medication ?Instructions ?Recorded ?Last Taken ?Type Ibuprofen [Motrin] 800 mg PO BID 11/02/15 11/02/15 History doxazosin 2 mg tablet (Cardura) 4 mg PO DAILY 11/02/15 11/01/15 History lisinopril 10 mg tablet 40 mg PO BID 11/02/15 11/02/15 History omeprazole 20 mg capsule,delayed 20 mg PO DAILY 11/02/15 11/02/15 History release ropinirole 5 mg tablet (Requip) 1 mg PO TID 11/02/15 11/02/15 History tramadol 50 mg tablet 50 mg PO BID 11/02/15 11/01/15 History docusate sodium 100 mg capsule 100 mg PO DAILY ##20 05/20/16 Unknown Rx (DOK) oxycodone-acetaminophen 5 mg-325 1 - 2 tab PO Q4H PRN PRN Pain #20 05/20/16 Unknown Rx mg tablet tabs amitriptyline 10 mg tablet 10 mg PO QHS 05/13/17 Unknown History aspirin 81 mg tablet,delayed 81 mg PO DAILY@0800 05/13/17 Unknown History release atorvastatin 80 mg tablet 80 mg PO QHS 05/13/17 Unknown History fluticasone propionate 50 50 mcg IH 05/13/17 Unknown History mcg/actuation blister powder for inhalation (Flovent Diskus) metoprolol tartrate 25 mg tablet 25 mg PO BID 05/13/17 Unknown History pantoprazole 40 mg tablet,delayed 40 mg PO BID 05/13/17 Unknown History release sildenafil 100 mg tablet (Viagra) 100 mg PO 05/13/17 Unknown History ticagrelor 90 mg tablet (Brilinta) 90 mg PO BID 05/13/17 Unknown History Allergy/AdvReac Type Severity Reaction Status Date / Time amoxicillin Allergy Hives Verified 01/12/25 12:48 Surgical History H/O heart artery stent Social History Smoking Status: Former smoker ROS ROS ED Constitutional Constitutional ED: Denies chills or fever(s) Eyes Eyes: Denies blurry vision or change in vision ENT ENT ED: Denies rhinorrhea or sore throat Cardiovascular Cardiovascular: Denies chest pain or palpitations Respiratory/Chest Respiratory/Chest: Denies cough or dyspnea Gastrointestinal Gastrointestinal: Denies nausea or vomiting Genitourinary Genitourinary ED: Denies dysuria or hematuria Musculoskeletal Musculoskeletal: Reports back pain; Denies neck pain Integumentary Denies abscess or rash Neurologic Neurologic: Denies headache(s) or weakness Allergic/Immunologic Allergic/Immunologic ED: Denies mouth swelling or urticaria EXAM Physical Exam Const Vital Signs: 01/12/25 12:48 Temperature 98.9 F Temperature Source Oral Pulse Rate 95 Respiratory Rate 18 Blood Pressure 153/68 H Blood Pressure Mean 96 Pulse Ox 100 Oxygen Delivery Method Room Air Positive well nourished and well developed General Appearance ED: well developed and NAD HEENT Reports moist mucous membranes Neck full ROM and supple Extremity Extremity Narrative: There is mild tenderness over the volar aspect of the left wrist and proximal hand. There is no edema or ecchymosis. There is no bony crepitance or step-off. There is no deformity noted. There is good range of motion of the left hand and left wrist. There is pain with flexion of the wrist with a closed fist. There is no pain with flexion of the wrist with open fingers. Radial pulses are equal bilaterally. Capillary refill was less than 2 seconds in all digits. There is no cyanosis or pallor. Tinel's sign was negative at the wrist and elbow. Phalen's test did not reproduce any paresthesias. Neuro oriented x3, CN's II-XII intact bilaterally, moves all extremities, no focal motor deficits and no sensory deficits noted Sensorium / Orientation: alert Motor Exam: strength 5/5 throughout Psych mental status grossly normal MDM MDM MDM Narrative Medical decision making narrative: Differential diagnosis includes electrolyte abnormality, carpal tunnel syndrome, and degenerative arthritis. CBC will be obtained to assess for leukocytosis and anemia. Basic metabolic profile will be obtained to assess for electrolyte abnormality and renal function. I do not feel x-rays are necessary at this time since the patient did not fall or have any direct trauma. Lab Data Attestation: I reviewed the patient's lab results. Lab results narrative: CBC was reviewed. There is a mild anemia with a hemoglobin of 12.7 and hematocrit 36.9. The remainder is within normal limits. Basic metabolic profile was reviewed and was essentially within normal limits. Treatment and Re-Evaluation Narrative: Patient was advised of his findings. Patient was advised that this could be carpal tunnel. Patient was given a cock up wrist splint. Patient was instructed to follow-up with his primary care physician in 3 to 5 days for further evaluation. Patient was instructed to return if worse in any way. Patient understood and was agreeable with the plan. All questions were answered. Discharge Plan Triage Chief Complaint: Upper Extremity Injury ED Provider: Donald Milian Dx/Rx/DC Orders Clinical Impression: Left hand pain, Hypertension Instructions: ED Pain, Acute, Uncertain Cause Prescriptions: No Action tramadol 50 MG tablet 50 mg PO BID Patient Comments: ARTHRITIS lisinopril 10 MG tablet 40 mg PO BID Patient Comments: BLOOD PRESSURE omeprazole 20 MG capsule 20 mg PO DAILY Patient Comments: GERD ropinirole [Requip] 5 MG tablet 1 mg PO TID Patient Comments: RESTLESS LEGS Ibuprofen [Motrin] 800 MG tablet 800 mg PO BID Patient Comments: PAIN doxazosin [Cardura] 2 MG tablet 4 mg PO DAILY Patient Comments: HEART,BLOOD PRESSURE oxycodone-acetaminophen 1 TABLET tablet 1 - 2 tab PO Q4H PRN PRN (Reason: Pain) Qty: 20 0RF docusate sodium [DOK] 100 MG capsule 100 mg PO DAILY Qty: 20 0RF Flovent Diskus 50 MCG blister with device 50 mcg IH atorvastatin 80 MG tablet 80 mg PO QHS aspirin 81 MG tablet 81 mg PO DAILY@0800 sildenafil [Viagra] 100 MG tablet 100 mg PO amitriptyline 10 MG tablet 10 mg PO QHS pantoprazole 40 MG tablet 40 mg PO BID metoprolol tartrate 25 MG tablet 25 mg PO BID ticagrelor [Brilinta] 90 MG tablet 90 mg PO BID [facility]Primary [facility] Provider[facility] - 3-5 Days Print Language: Syrian Disposition Disposition: Home, Self Care
[2025-01-12 13:22] LABS: Absolute Lymphocyte Count 0.76 X10^3/uL (0.83-4.51); Absolute Neutrophil Count 5.2 X10^3/uL (2.0-7.7); Basophil# 0.06 X10^3/uL; Basophil% 0.9 % (0-1); Eosinophil# 0.26 X10^3/uL; Eosinophils% 3.8 % (0-5); Hematocrit 36.9 % (40-54); Hemoglobin 12.7 g/dL (13.0-16.5); Lymphocyte # 0.76 X10^3/ul (0.83-4.51); Lymphocyte % 11.2 % (19-41); Mean Corp Hgb Conc 34.4 g/dL (32-36); Mean Platelet Vol. 9.1 fl (6.2-12.0); Monocyte% 7.4 % (0-10); NRBC Flagged by Analyzer 0 % (0-5); Neutrophil # 5.19 X10^3/uL (2.7-7.7); Neutrophil % 76.4 % (47-70); Platelet Count 195 K/mm3 (150-450); RBC Distribution Width CV 12.6 % (11.6-14.6); RBC Distribution Width SD 41.3 fl (35.1-43.9); White Blood Count 6.8 K/mm3 (4.4-11.0)
[2025-01-12 13:47] LABS: Anion Gap 8 (5-15); BUN 19 mg/dL (4-19); BUN/Creat Ratio 18.7 RATIO (10-20); Calcium,Total 8.9 mg/dL (7.6-11.0); Carbon Dioxide 22.8 mmol/L (21.0-32.0); Chloride 106 mmol/L (98-108); Creatinine, Serum 1.02 mg/dL (0.70-1.20); EST Glomerular Filtration Rate 75 (>60); Estimated Creatinine Clearance 67.24 ml/min (50-250); Glucose 115 mg/dL (70-99); Potassium 4.6 mmol/L (3.3-5.1); Sodium Level 137 mmol/L (133-145)
[2025-01-12 14:12] VITALS: BP 150/78; PULSE 77; RESP 19; TEMP 36.6; O2SAT 97
== END 2025-01-12 14:13 | disposition home or self-care (01) ==
PROVIDERS: Emergency Provider Emergency Medicine; Visit Provider Emergency Medicine
DX: M79.642 Pain in left hand (principal); Z87.891 Personal history of nicotine dependence; I10 Essential (primary) hypertension; Z79.899 Other long term (current) drug therapy; Z79.82 Long term (current) use of aspirin
CPT/HCPCS: 80048; 85025; 99283; A4216